=== PATIENT | male | born 1960 ===

== ENCOUNTER 2017-02-28 09:31 | Day surgery (SDC) | payer MEDICAID ==
[2017-02-28] MEDS ORDERED: Propofol 10 mg/ml Inj (20 ML) ONE (11:18)
[2017-02-28] MEDS ORDERED: Lactated Ringer's 500 ML IV ONE (11:20)
[2017-02-28 12:05] VITALS: PULSE 59; TEMP 97
[2017-02-28 12:27] VITALS: BP 116/59; RESP 17; O2SAT 100
== END 2017-02-28 12:36 | disposition home or self-care (01) ==
LOC: H.ENDO 09:31
PROVIDERS: ATTEND Internal Medicine Gastroenterology
DX: Z12.11 Encounter for screening for malignant neoplasm of colon (principal); K62.0 Anal polyp; K57.30 Diverticulosis of large intestine without perforation or abscess without bleeding; K64.8 Other hemorrhoids; Z85.038 Personal history of other malignant neoplasm of large intestine